=== PATIENT | male | born 1985 | race Caucasian/White ===

== ENCOUNTER 2017-08-29 05:52 | Emergency (ER) | payer OTHER ==
[~2017-08-29] VITALS: Ht 182.9 cm; Wt 136.4 kg
[~2017-08-29 05:52] MED LIST: ABILIFY10 MG PO; ABILIFY20 MG PO; ADDERALL10 MG PO; ADDERALL20 MG PO; AMBIEN10 MG PO; Ambien PO; BACTRIM,SEPT1 TABLET PO; Bactrim,Septra DS 80 PO; DILAUDID2 MG PO; DOCUSATE SODIU100 MG PO; EFFEXOR XR150 MG PO; Inderal PO; LAMICTAL200 MG PO; LAMOTRIGINE200 MG PO; ONDANSETRON HCL4 MG PO; OxyCODONE PO; SUBOXONE 8 M1 TABLET SL; TYLENOL REGULA325 MG PO; VENLAFAXINE HC150 M1 PO; ZOLPIDEM TARTRAT5 MG PO
[2017-08-29 06:59] LABS: BASOPHIL (%) 0.6 % (0-1); BASOPHIL COUNT 0.1 K/uL (0-0.1); EOSINOPHIL (%) 1.4 % (0-5); EOSINOPHIL COUNT 0.1 K/uL (0-0.3); HEMOGLOBIN 10.8 G/DL (12.5-16.6); IMMATURE GRANULOCYTE (%) 0.4 % (0.0-0.7); LYMPHOCYTE (%) 27.3 % (15-42); LYMPHOCYTE COUNT 2.7 K/uL (1.0-2.8); MCH 21.3 PG (29.0-34.0); MCV 71.1 FL (86-99); MONOCYTE (%) 8.6 % (3-12); MONOCYTE COUNT 0.8 K/uL (0-0.8); NEUTROPHIL (%) 61.7 % (45-76); PLATELET COUNT 319 K/uL (156-360); RBC DIS.WIDTH-SD 37.9 % (39-53); RED BLOOD COUNT 5.06 M/uL (4.00-5.50); WHITE BLOOD COUNT 9.7 K/uL (4.1-10.2)
[2017-08-29 07:10] LABS: APPEARANCE SL.HAZY ((CLEAR)); BILIRUBIN NEGATIVE; BLOOD NEGATIVE; COLOR YELLOW ((YELLOW)); GLUCOSE (STRIP) NEGATIVE; KETONES NEGATIVE; LEUKOCYTES NEGATIVE; NITRITE NEGATIVE; PROTEIN (STRIP) 100; SPECIFIC GRAVITY 1.029 (1.000-1.030)
[2017-08-29 07:20] LABS: BACTERIA NONE SEEN /HPF; EPITHELIAL CELLS NONE SEEN /HPF; MUCUS TRACE /LPF
[2017-08-29 07:20] LABS: ALBUMIN 4.3 G/DL (3.2-4.8); CHLORIDE 100 MEQ/L (99-109); DIRECT BILIRUBIN 0.2 mg/dL (0.0-0.3); POTASSIUM 4.1 MEQ/L (3.7-5.4); SODIUM 134 MEQ/L (136-147); TOTAL BILIRUBIN 0.7 MG/DL (0.0-1.0)
[2017-08-29 07:27] LABS: ALKALINE PHOSPHATASE 103 IU/L (3-129); ALT (GPT) 78 IU/L (3-49); AST (GOT) 91 IU/L (2-34); GFR ESTIMATE (CALCULATED) > 59 mL/min/; GLUCOSE 127 mg/dL (70-99); SALICYLATE < 3.0 MG/DL (15-30); SERUM ETHYL ALCOHOL < 10 mg/dL; TOTAL PROTEIN 7.8 G/DL (6.4-8.3); UREA NITROGEN (BUN) 22 mg/dL (9-23)
[2017-08-29 07:40] LABS: ACETAMINOPHEN (TYLENOL) < 10 MCG/ML (10-30)
[2017-08-29 07:58] LABS: COCAINE PRESUMPTIVE POSITIVE (150 ng/mL); METHAMPHETAMINE NEGATIVE (500 ng/mL); PHENCYCLIDINE NEGATIVE (25 ng/mL); THC CANNABINOIDS NEGATIVE (50 ng/mL)
[2017-08-29 07:59] LABS: AMPHETAMINE PRESUMPTIVE POSITIVE (500 ng/mL); BARBITURATES NEGATIVE (200 ng/mL); BENZODIAZEPINES PRESUMPTIVE POSITIVE (150 ng/mL); BUPRENORPHINE PRESUMPTIVE POSITIVE (10 ng/mL); METHADONE NEGATIVE (200 ng/mL); OPIATES (MORPHINE) PRESUMPTIVE POSITIVE (100 ng/mL); OXYCODONE NEGATIVE (100 ng/mL); PROPOXYPHENE NEGATIVE (300 ng/mL); TRICYCLIC ANTIDEPRESSANTS NEGATIVE (300 ng/mL)
[2017-08-29 08:48] LABS: BENZODIAZEPINES, URINE SCREEN POSITIVE (200 ng/mL)
[2017-08-29 17:57] VITALS: BP 130/69
== END 2017-08-29 17:58 | disposition home or self-care (01) ==
LOC: EME 05:52
PROVIDERS: Emergency Medicine
DX: F19.10 Other psychoactive substance abuse, uncomplicated (principal); F32.9 Major depressive disorder, single episode, unspecified; Z04.6 Encounter for general psychiatric examination, requested by authority; R45.1 Restlessness and agitation; F41.9 Anxiety disorder, unspecified; F90.9 Attention-deficit hyperactivity disorder, unspecified type; F17.200 Nicotine dependence, unspecified, uncomplicated
CPT/HCPCS: 80048; 80076; 81003; 84999; 85025; 90837; 93005; 99281; 99285; G0480; J2060; J3486

== ENCOUNTER 2018-02-24 17:50 | Emergency (ER) | payer OTHER ==
[~2018-02-24] VITALS: Ht 182.9 cm; Wt 121.1 kg
[2018-02-24] MEDS ORDERED: CLEOCIN300 MG PO (19:50)
[2018-02-24 19:55] VITALS: BP 146/78
== END 2018-02-24 19:55 | disposition home or self-care (01) ==
LOC: EME 17:50
DX: L02.211 Cutaneous abscess of abdominal wall (principal); Z87.898 Personal history of other specified conditions; F32.9 Major depressive disorder, single episode, unspecified; F90.9 Attention-deficit hyperactivity disorder, unspecified type; F41.9 Anxiety disorder, unspecified; F17.200 Nicotine dependence, unspecified, uncomplicated; Z87.2 Personal history of diseases of the skin and subcutaneous tissue; Z86.14 Personal history of Methicillin resistant Staphylococcus aureus infection; Z86.19 Personal history of other infectious and parasitic diseases; Z87.01 Personal history of pneumonia (recurrent); Z88.8 Allergy status to other drugs, medicaments and biological substances
CPT/HCPCS: 80053; 85027; 99281; 99284

== ENCOUNTER 2018-02-27 16:03 | Emergency (ER) | payer SELFPAY ==
[~2018-02-27] VITALS: Ht 182.9 cm; Wt 118.5 kg
[~2018-02-27 16:03] MED LIST changes: +CLEOCIN300 MG PO
[2018-02-27 16:26] VITALS: BP 140/90
== END 2018-02-27 16:43 | disposition left against medical advice (07) ==
LOC: EME 16:03
DX: R07.9 Chest pain, unspecified (principal); Z53.21 Procedure and treatment not carried out due to patient leaving prior to being seen by health care provider

== ENCOUNTER 2018-02-27 23:08 | Emergency (ER) | payer SELFPAY ==
[~2018-02-27] VITALS: Ht 182.9 cm; Wt 118.2 kg
[2018-02-28 00:17] LABS: BASOPHIL (%) 0.4 % (0-1); EOSINOPHIL (%) 1.2 % (0-5); EOSINOPHIL COUNT 0.1 K/uL (0-0.3); HEMATOCRIT 36.5 % (38.0-50.0); HEMOGLOBIN 11.2 G/DL (12.5-16.6); IMMATURE GRANULOCYTE (%) 1.6 % (0.0-0.7); LYMPHOCYTE COUNT 2.4 K/uL (1.0-2.8); MCH 21.7 PG (29.0-34.0); MCHC 30.7 G/DL (30.0-36.0); MCV 70.7 FL (86-99); MONOCYTE (%) 3.9 % (3-12); MONOCYTE COUNT 0.3 K/uL (0-0.8); NEUTROPHIL (%) 63.9 % (45-76); NEUTROPHIL COUNT 5.3 K/uL (1.8-6.4); PLATELET COUNT 390 K/uL (156-360); RBC DIS.WIDTH-CV 18.9 % (11.8-14.6); RBC DIS.WIDTH-SD 46.4 % (39-53); RED BLOOD COUNT 5.16 M/uL (4.00-5.50); WHITE BLOOD COUNT 8.2 K/uL (4.1-10.2)
[2018-02-28 00:21] LABS: ALBUMIN 4.4 g/dL (3.2-4.8)
[2018-02-28 00:22] LABS: CHLORIDE 106 mEq/L (99-109); POTASSIUM 4.1 mEq/L (3.7-5.4); SODIUM 142 mEq/L (136-147)
[2018-02-28 00:23] LABS: INTER. NORMALIZED RATIO 1.2
[2018-02-28 00:24] LABS: GLUCOSE 100 mg/dL (70-99); TOTAL PROTEIN 7.9 g/dL (6.4-8.3)
[2018-02-28 00:26] LABS: PTT 26.7 SEC (25-37)
[2018-02-28 00:26] LABS: TOTAL BILIRUBIN 0.2 mg/dL (0.0-1.0)
[2018-02-28 00:27] LABS: ALKALINE PHOSPHATASE 97 IU/L (3-129); SERUM ETHYL ALCOHOL < 10 mg/dL
[2018-02-28 00:28] LABS: CREATININE 1.1 mg/dL (0.6-1.3); GFR ESTIMATE (CALCULATED) > 59 mL/min/ (58.99-99999)
[2018-02-28 00:29] LABS: AST (GOT) 26 IU/L (2-34); UREA NITROGEN (BUN) 20 mg/dL (9-23)
[2018-02-28 00:31] LABS: ALT (GPT) 19 IU/L (3-49); LIPASE 14 U/L (1.0-51.0)
[2018-02-28 00:38] LABS: TROP-I INTERPRETATION NEGATIVE; TROPONIN-I < 0.01 ng/mL (0.0-0.30)
[2018-02-28 00:39] LABS: ERTH.SED.RATE 92 MM/HR (0-15)
[2018-02-28 01:25] LABS: APPEARANCE SL.HAZY ((CLEAR)); BILIRUBIN NEGATIVE; BLOOD NEGATIVE; COLOR YELLOW ((YELLOW)); GLUCOSE (STRIP) NEGATIVE; KETONES NEGATIVE; LEUKOCYTES NEGATIVE; NITRITE NEGATIVE; PROTEIN (STRIP) 100; SPECIFIC GRAVITY 1.031 (1.000-1.030); UROBILINOGEN 0.2 MG/DL (0.2-1.0)
[2018-02-28 01:34] LABS: AMPHETAMINE PRESUMPTIVE POSITIVE (500 ng/mL); BACTERIA NONE SEEN /HPF; BARBITURATES NEGATIVE (200 ng/mL); BENZODIAZEPINES PRESUMPTIVE POSITIVE (150 ng/mL); BUPRENORPHINE PRESUMPTIVE POSITIVE (10 ng/mL); COCAINE PRESUMPTIVE POSITIVE (150 ng/mL); EPITHELIAL CELLS NONE SEEN /HPF; HYALINE CASTS 30-40 /LPF; METHADONE NEGATIVE (200 ng/mL); METHAMPHETAMINE NEGATIVE (500 ng/mL); MUCUS 1+ /LPF; OPIATES (MORPHINE) PRESUMPTIVE POSITIVE (100 ng/mL); OXYCODONE NEGATIVE (100 ng/mL); PHENCYCLIDINE NEGATIVE (25 ng/mL); PROPOXYPHENE NEGATIVE (300 ng/mL); RED BLOOD CELLS 0-5 /HPF (0-5); THC CANNABINOIDS PRESUMPTIVE POSITIVE (50 ng/mL); TRICYCLIC ANTIDEPRESSANTS NEGATIVE (300 ng/mL); UCUL ADDED? NO; WHITE BLOOD CELLS 0-5 /HPF (0-5)
[2018-02-28 02:03] LABS: BENZODIAZEPINES, URINE SCREEN POSITIVE (200 ng/mL)
[2018-02-28 04:00] VITALS: BP 134/91
== END 2018-02-28 04:01 | disposition home or self-care (01) ==
LOC: EME 23:08
PROVIDERS: Emergency Medicine
DX: F14.10 Cocaine abuse, uncomplicated (principal); F15.10 Other stimulant abuse, uncomplicated; F11.10 Opioid abuse, uncomplicated; R07.9 Chest pain, unspecified; R06.02 Shortness of breath; M54.9 Dorsalgia, unspecified; Z86.14 Personal history of Methicillin resistant Staphylococcus aureus infection; Z87.01 Personal history of pneumonia (recurrent); F17.200 Nicotine dependence, unspecified, uncomplicated
CPT/HCPCS: 71046; 80053; 81003; 83605; 83690; 84484; 84999; 85025; 85027; 85610; 85651; 85730; 87040; 93005; 99281; 99285; G0480; J1885; J2060; J2543; J3370; J7050

== ENCOUNTER 2018-03-21 11:54 | Emergency (ER) | payer SELFPAY ==
[~2018-03-21] VITALS: Ht 182.9 cm; Wt 119.2 kg
[2018-03-21 12:00] VITALS: BP 151/106
[2018-03-21 12:41] LABS: CHLORIDE 104 mEq/L (99-109); POTASSIUM 4.3 mEq/L (3.7-5.4); SODIUM 137 mEq/L (136-147)
[2018-03-21 12:43] LABS: BASOPHIL (%) 0.5 % (0-1); BASOPHIL COUNT 0.1 K/uL (0-0.1); EOSINOPHIL (%) 1.9 % (0-5); EOSINOPHIL COUNT 0.2 K/uL (0-0.3); GLUCOSE 101 mg/dL (70-99); HEMATOCRIT 42.8 % (38.0-50.0); IMMATURE GRANULOCYTE (%) 0.7 % (0.0-0.7); LYMPHOCYTE (%) 24.7 % (15-42); LYMPHOCYTE COUNT 2.9 K/uL (1.0-2.8); MCH 22.2 PG (29.0-34.0); MCHC 31.1 G/DL (30.0-36.0); MCV 71.5 FL (86-99); MONOCYTE (%) 5.8 % (3-12); MONOCYTE COUNT 0.7 K/uL (0-0.8); NEUTROPHIL (%) 66.4 % (45-76); NEUTROPHIL COUNT 7.9 K/uL (1.8-6.4); RBC DIS.WIDTH-CV 20.3 % (11.8-14.6); RED BLOOD COUNT 5.99 M/uL (4.00-5.50); WHITE BLOOD COUNT 11.9 K/uL (4.1-10.2)
[2018-03-21 12:47] LABS: CREATININE 0.8 mg/dL (0.6-1.3); GFR ESTIMATE (CALCULATED) > 59 mL/min/ (58.99-99999)
[2018-03-21 12:48] LABS: UREA NITROGEN (BUN) 16 mg/dL (9-23)
[2018-03-21 13:12] LABS: HEMOGLOBIN 13.3 G/DL (12.5-16.6)
[2018-03-21 13:13] LABS: PLAT.SUFFICIENCY INCREASED; PLATELET COUNT 378 K/uL (156-360)
== END 2018-03-21 13:09 | disposition left against medical advice (07) ==
LOC: EME 11:54
DX: M79.602 Pain in left arm (principal); M79.89 Other specified soft tissue disorders; Z53.21 Procedure and treatment not carried out due to patient leaving prior to being seen by health care provider
CPT/HCPCS: 80048; 81003; 83605; 85025

== ENCOUNTER 2018-04-14 16:32 | Emergency (ER) | payer OTHER ==
[~2018-04-14] VITALS: Ht 182.9 cm; Wt 121.3 kg
[2018-04-14 19:20] LABS: HEMATOCRIT 31.2 % (38.0-50.0); MCHC 31.4 G/DL (30.0-36.0); MCV 70.1 FL (86-99); RBC DIS.WIDTH-CV 18.6 % (11.8-14.6); RBC DIS.WIDTH-SD 46.4 % (39-53); WHITE BLOOD COUNT 12.1 K/uL (4.1-10.2)
[2018-04-14 19:21] LABS: HEMOGLOBIN 9.8 G/DL (12.5-16.6); PLATELET COUNT 545 K/uL (156-360); RED BLOOD COUNT 4.45 M/uL (4.00-5.50)
[2018-04-14 19:23] LABS: ALBUMIN 3.6 g/dL (3.2-4.8); CHLORIDE 104 mEq/L (99-109); SODIUM 139 mEq/L (136-147)
[2018-04-14 19:26] LABS: GLUCOSE 95 mg/dL (70-99); TOTAL PROTEIN 7.1 g/dL (6.4-8.3)
[2018-04-14 19:28] LABS: TOTAL BILIRUBIN 0.2 mg/dL (0.0-1.0)
[2018-04-14 19:29] LABS: ALKALINE PHOSPHATASE 102 IU/L (3-129); CREATININE 0.8 mg/dL (0.6-1.3); GFR ESTIMATE (CALCULATED) > 59 mL/min/ (58.99-99999)
[2018-04-14 19:30] LABS: UREA NITROGEN (BUN) 19 mg/dL (9-23)
[2018-04-14 19:31] LABS: AST (GOT) 22 IU/L (2-34)
[2018-04-14 19:32] LABS: ALT (GPT) 12 IU/L (3-49)
[2018-04-14 19:45] LABS: APPEARANCE CLEAR ((CLEAR)); BILIRUBIN NEGATIVE; BLOOD NEGATIVE; COLOR YELLOW ((YELLOW)); GLUCOSE (STRIP) NEGATIVE; KETONES NEGATIVE; LEUKOCYTES NEGATIVE; NITRITE NEGATIVE; PROTEIN (STRIP) 100; SPECIFIC GRAVITY 1.038 (1.000-1.030)
[2018-04-14 20:00] LABS: BACTERIA NONE SEEN /HPF; EPITHELIAL CELLS NONE SEEN /HPF; MUCUS TRACE /LPF; RED BLOOD CELLS 0-5 /HPF (0-5); UCUL ADDED? YES
[2018-04-14] MEDS ORDERED: ZYVOX600 MG PO (20:50)
[2018-04-14 21:09] VITALS: BP 138/90
== END 2018-04-14 21:15 | disposition home or self-care (01) ==
LOC: EME 16:32 → EXP 16:32
DX: L02.211 Cutaneous abscess of abdominal wall (principal); F19.90 Other psychoactive substance use, unspecified, uncomplicated; Z86.14 Personal history of Methicillin resistant Staphylococcus aureus infection; F17.200 Nicotine dependence, unspecified, uncomplicated
CPT/HCPCS: 80053; 81003; 85027; 87040; 87086; 99281; 99285; J2060

== ENCOUNTER 2018-04-22 12:30 | Emergency (ER) | payer OTHER ==
[~2018-04-22] VITALS: Ht 182.9 cm; Wt 117.2 kg
[~2018-04-22 12:30] MED LIST changes: +ZYVOX600 MG PO
[2018-04-22 16:44] LABS: HEMATOCRIT 33.1 % (38.0-50.0); HEMOGLOBIN 10.4 G/DL (12.5-16.6); MCH 21.9 PG (29.0-34.0); MCHC 31.4 G/DL (30.0-36.0); MCV 69.8 FL (86-99); PLATELET COUNT 514 K/uL (156-360); RBC DIS.WIDTH-CV 18.6 % (11.8-14.6); RBC DIS.WIDTH-SD 45.2 % (39-53); RED BLOOD COUNT 4.74 M/uL (4.00-5.50); WHITE BLOOD COUNT 9.9 K/uL (4.1-10.2)
[2018-04-22 17:05] LABS: TROP-I INTERPRETATION NEGATIVE; TROPONIN-I < 0.01 ng/mL (0.0-0.30)
[2018-04-22 17:06] LABS: ALBUMIN 4.1 g/dL (3.2-4.8)
[2018-04-22 17:07] LABS: CHLORIDE 100 mEq/L (99-109); POTASSIUM 4.5 mEq/L (3.7-5.4); SODIUM 138 mEq/L (136-147)
[2018-04-22 17:09] LABS: GLUCOSE 97 mg/dL (70-99); TOTAL PROTEIN 8.4 g/dL (6.4-8.3)
[2018-04-22 17:10] VITALS: BP 131/100
[2018-04-22 17:11] LABS: TOTAL BILIRUBIN 0.3 mg/dL (0.0-1.0)
[2018-04-22 17:12] LABS: ALKALINE PHOSPHATASE 96 IU/L (3-129)
[2018-04-22 17:13] LABS: CREATININE 0.9 mg/dL (0.6-1.3); GFR ESTIMATE (CALCULATED) > 59 mL/min/ (58.99-99999)
[2018-04-22 17:15] LABS: ALT (GPT) 14 IU/L (3-49); AST (GOT) 29 IU/L (2-34); UREA NITROGEN (BUN) 14 mg/dL (9-23)
== END 2018-04-22 17:10 | disposition home or self-care (01) ==
LOC: EME 12:30
PROVIDERS: Emergency Medicine
DX: D64.9 Anemia, unspecified (principal); S20.219A Contusion of unspecified front wall of thorax, initial encounter; B19.20 Unspecified viral hepatitis C without hepatic coma; F32.9 Major depressive disorder, single episode, unspecified; F41.9 Anxiety disorder, unspecified; F90.9 Attention-deficit hyperactivity disorder, unspecified type; F17.200 Nicotine dependence, unspecified, uncomplicated; Z86.711 Personal history of pulmonary embolism; Z86.14 Personal history of Methicillin resistant Staphylococcus aureus infection; Z88.8 Allergy status to other drugs, medicaments and biological substances
CPT/HCPCS: 71046; 71250; 80048; 80053; 83605; 84484; 85027; 87040; 93005; 99281; 99285

== ENCOUNTER 2018-05-04 15:57 | Emergency (ER) | payer OTHER ==
[~2018-05-04] VITALS: Ht 182.9 cm; Wt 122.1 kg
[2018-05-04 18:45] VITALS: BP 168/86
== END 2018-05-04 18:45 | disposition home or self-care (01) ==
LOC: EME 15:57
DX: L02.211 Cutaneous abscess of abdominal wall (principal); L02.413 Cutaneous abscess of right upper limb; L02.414 Cutaneous abscess of left upper limb; R06.00 Dyspnea, unspecified; Z86.14 Personal history of Methicillin resistant Staphylococcus aureus infection; F17.200 Nicotine dependence, unspecified, uncomplicated; F32.9 Major depressive disorder, single episode, unspecified; F41.9 Anxiety disorder, unspecified; F90.9 Attention-deficit hyperactivity disorder, unspecified type
CPT/HCPCS: 80048; 81003; 83605; 83880; 84484; 85025; 85610; 85730; 87040; 99281; 99285